=== PATIENT | female | born 1995 | race Caucasian/White ===

== ENCOUNTER → 2016-11-18 | Outpatient (CLI) | payer MEDICAID ==
[~2016-11-18] MED LIST: CIPR2.5D2; DOXY100T2 PO; ONDA8TAB9 PO; SERT50TA9
--- NOTE | 2016-11-18 16:05 | Diagnostic Imaging Report ---
INDICATION: survey. COMPARISON: None. DISCUSSION: Transabdominal sonographic evaluation of the gravid uterus was performed. Single live intrauterine at 19 weeks 2 days by sonographic measurements. EDC by today's ultrasound is 04/12/2017. presentation varied throughout the exam. Normal amniotic fluid index. Grade 1 placenta is located anteriorly with marginal placenta previa. heart rate measures 161 beats per minute. The cervix measures 4.4 cm. Biparietal diameter measures 4.1 cm. Head circumference measures 16 cm. Abdominal circumference measures 14.7 cm. Femur length measures 3 cm. There is good visualization of the kidneys, bladder, stomach, brain, four-chamber heart, three-vessel cord and insertion, spine, and extremities. IMPRESSION: 1. Single live intrauterine at 19 weeks 2 days by sonographic measurements. 2. Marginal placenta previa. 3. Normal anatomical survey. Dictated by: Dictated on workstation # [id number]
== END ==
LOC: RAD 14:17
PROVIDERS: ATTEND Obstetrics & Gynecology
DX: Z36 Encounter for antenatal screening of mother (principal); Z3A.19 19 weeks gestation of pregnancy
CPT/HCPCS: 76805; 76817

== ENCOUNTER 2022-05-19 20:06 | Emergency (ER) | payer MEDICAID ==
[~2022-05-19] VITALS: Ht 157.4 cm; Wt 44.0 kg
[~2022-05-19 20:06] MED LIST changes: -CIPR2.5D2; +CIPR2.5D3; +SERT-413; -SERT50TA9
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
[2022-05-19] MEDS ORDERED: CYCL5TAB PO (20:42)
[2022-05-19] MEDS ORDERED: CYCLOBENZAPRINE 10 MG (FLEXERIL) TAB PO SCH (20:45)
[2022-05-19] MEDS ORDERED: KETOROLAC 60 MG/2 ML VIAL IM ONE (20:45)
[2022-05-19 20:48] VITALS: BP 113/79
== END 2022-05-19 20:48 | disposition home or self-care (01) ==
LOC: EDUNIT# 20:06 → ER FS 20:08
DX: S03.41XA Sprain of jaw, right side, initial encounter (principal); M25.511 Pain in right shoulder; Z28.311 Partially vaccinated for COVID-19; Y04.8XXA Assault by other bodily force, initial encounter
CPT/HCPCS: 99284

== ENCOUNTER 2023-05-22 19:35 | Emergency (ER) | payer SELFPAY ==
[~2023-05-22] VITALS: Ht 157.4 cm; Wt 48.8 kg
[~2023-05-22 19:35] MED LIST changes: +CIPR2.5D18; -CIPR2.5D3; +CYCL5TAB PO
[2023-05-22] MEDS ORDERED: LACTATED RINGERS 1,000 ML 1,000 ML IV ONE (20:00)
[2023-05-22] MEDS ORDERED: FAMOTIDINE INJ 20MG/2ML VIAL IVP ONE (20:00)
[2023-05-22] MEDS ORDERED: PROMETHAZINE INJ 25 MG/ML VIAL IVP ONE (20:00)
[2023-05-22] MEDS ORDERED: SCOPOLAMINE 1.5 MG PATCH TD ONE (20:00)
[2023-05-22 20:11] LABS: BASOPHILS % (AUTO) 0 % (0-10); EOSINOPHILS % (AUTO) 0 % (0-10); HEMATOCRIT 40 % (35-52); HEMOGLOBIN 13.5 g/dL (11.5-16.0); LYMPHOCYTES # (AUTO) 2.1 10^3/uL (1.0-4.0); LYMPHOCYTES % (AUTO) 19 % (12-44); MEAN CORPUSCULAR HEMOGLOBIN 30 pg (25-34); MEAN CORPUSCULAR HGB CONC 34 g/dL (32-36); MEAN CORPUSCULAR VOLUME 89 fL (80-99); MEAN PLATELET VOLUME 11.6 fL (9.0-12.2); MONOCYTES # (AUTO) 0.5 10^3/uL (0.0-1.0); MONOCYTES % (AUTO) 5 % (0-12); NEUTROPHILS # (AUTO) 8.3 10^3/uL (1.8-7.8); NEUTROPHILS % (AUTO) 76 % (42-75); PLATELET COUNT 216 10^3/uL (130-400); WHITE BLOOD COUNT 10.9 10^3/uL (4.3-11.0)
[2023-05-22 20:42] LABS: POTASSIUM 3.6 MMOL/L (3.6-5.0)
[2023-05-22 20:43] LABS: ALBUMIN 4.4 GM/DL (3.2-4.5); BILIRUBIN,TOTAL 0.9 MG/DL (0.1-1.0); CALCIUM 9.6 MG/DL (8.5-10.1); CREATININE SERUM 0.64 MG/DL (0.60-1.30); TOTAL PROTEIN 7.3 GM/DL (6.4-8.2)
[2023-05-22] MEDS ORDERED: diphenhydrAMINE INJ 50 MG/ML VIAL IVP ONE (21:00)
[2023-05-22] MEDS ORDERED: FAMO-119 PO (21:11)
[2023-05-22] MEDS ORDERED: PROM12.566 RC (21:11)
--- NOTE | 2023-05-22 21:11 | ED General ---
General Chief Complaint: Abdominal/GI Problems Stated Complaint: OB, VOMITTING Nursing Triage Note: Patient is 8 weeks and 5 days . Patient began experiencing nausea and vomiting at approximately 6 weeks into her . Patient went to her doctor and they prescribed zofran. Patient reports that the zofran has provided no relief. Patient reports that she has been unable to hold anything down. Patient denies any other symptoms of illness. Source of Information: Patient Exam Limitations: No Limitations History of Present Illness Date Seen by Provider: May 22, 2023 Time Seen by Provider: 19:49 Initial Comments Caro is a 27-year-old 8 para 5 at approximately 8 weeks gestational age who presents to the emergency room with unrelenting nausea and vomiting. She reports vomiting every 30 to 60 minutes since 2100 last night. She has had daily vomiting for the last 1 to 2 weeks since about 6 weeks gestational age. She was seen at the [facility] clinic on Thursday, 5 days ago, and was prescribed Zofran. Zofran has not been effective for controlling her nausea and vomiting. She also reports some mild epigastric and left upper quadrant discomfort. She reports being exhausted from persistent nausea and vomiting and inability to rest. She reports previously living in [place] where she was able to legally smoke marijuana. Her last marijuana use was about a week ago. She reports taking 2 medications for behavioral health reasons. 1 is hydroxyzine for anxiety and the other she cannot recall. She has not been able to take these medications due to the vomiting. Allergies and Home Medications Allergies Coded Allergies: No Known Drug Allergies (Unverified , 08/21/11) Patient Home Medication List Home Medication List Reviewed: Yes Cyclobenzaprine HCl (Cyclobenzaprine HCl) 5 Mg Tablet, 5 MG PO Q6H Prescribed by: MAGGI TAYLOR MD on 05/19/222041 Famotidine (Pepcid) 20 Mg Tablet, 20 MG PO BID Prescribed by: ALMAZ ABDI on 05/22/232110 Promethazine HCl (Promethazine Suppository) 12.5 Mg Supp.rect, 12.5 MG RC Q6H PRN for NAUSEA/VOMITING-2ND LINE Prescribed by: ALMAZ ABDI on 05/22/232110 Sertraline HCl (Sertraline HCl) 50 Mg Tablet, (Reported) Entered as Reported by: KAYDEN BOOTH on 03/28/16 1322 Review of Systems Review of Systems Constitutional: no symptoms reported EENTM: no symptoms reported Respiratory: no symptoms reported Cardiovascular: no symptoms reported Gastrointestinal: see HPI : Yes Musculoskeletal: no symptoms reported Skin: no symptoms reported Psychiatric/Neurological: No Symptoms Reported Hematologic/Lymphatic: No Symptoms Reported Immunological/Allergic: no symptoms reported Past Yboesun-Bocger-Obxaid Hx Patient Social History Tobacco Use?: No Substance use?: Yes Substance type: Marijuana Alcohol Use?: No Pt feels they are or have been: No Immunizations Up To Date First/Initial COVID19 Vaccinat: 2020 estimated Past Medical History Surgeries: Yes Abdominal (Hernia) Respiratory: No Cardiac: No Neurological: No : Yes Hx : 8 Hx Para: 5 Hx Total # of Abortions (Sp): 2 Reproductive Disorders: No Sexually Transmitted Disease: Yes (TRICHOMONIASIS) Genitourinary: No Gastrointestinal: No Musculoskeletal: No Endocrine: No HEENT: No Cancer: No Psychosocial: Yes Anxiety, Depression Integumentary: No Family Medical History No Pertinent Family Hx Physical Exam Vital Signs Vital Signs - First Documented 05/22/23 19:50 Temp 37.0 Pulse 76 Resp 18 B/P (MAP) 131/99 (110) Pulse Ox 100 O2 Delivery Room Air Capillary Refill : Less Than 3 Seconds Height, Weight, BMI Height: 5'1" Weight: 103lbs. oz. [id number]; 19.00 BMI Method:Stated General Appearance: WD/WN, Anxious, Mild Distress HEENT: PERRL/EOMI, Normal ENT Inspection, Other (Oropharynx dry) Neck: Normal Inspection Respiratory: Lungs Clear, Normal Breath Sounds, No Accessory Muscle Use Cardiovascular: Regular Rate, Rhythm, No Edema, No Murmur Gastrointestinal: Normal Bowel Sounds, Soft; No Distended; Tenderness (Mild in the epigastrium and left upper quadrant) Extremity: Normal Inspection Neurologic/Psychiatric: Alert, Oriented x3, No Motor/Sensory Deficits Skin: Normal Color, Warm/Dry Progress/Results/Core Measures Suspected Sepsis SIRS Temperature: Pulse: 76 Respiratory Rate: 18 Laboratory Tests 05/22/23 19:56: White Blood Count 10.9 Blood Pressure 131 /99 Mean: 110 Laboratory Tests 05/22/23 19:56: Creatinine 0.64, Platelet Count 216, Total Bilirubin 0.9 Results/Orders Lab Results Laboratory Tests Test 05/22/23 19:56 Range/Units White Blood Count 10.9 4.3-11.0 10^3/uL Red Blood Count 4.48 3.80-5.11 10^6/uL Hemoglobin 13.5 11.5-16.0 g/dL Hematocrit 40 35-52 % Mean Corpuscular Volume 89 80-99 fL Mean Corpuscular Hemoglobin 30 25-34 pg Mean Corpuscular Hemoglobin Concent 34 32-36 g/dL Red Cell Distribution Width 13.1 10.0-14.5 % Platelet Count 216 130-400 10^3/uL Mean Platelet Volume 11.6 9.0-12.2 fL Immature Granulocyte % (Auto) 0 % Neutrophils (%) (Auto) 76 H 42-75 % Lymphocytes (%) (Auto) 19 12-44 % Monocytes (%) (Auto) 5 0-12 % Eosinophils (%) (Auto) 0 0-10 % Basophils (%) (Auto) 0 0-10 % Neutrophils # (Auto) 8.3 H 1.8-7.8 10^3/uL Lymphocytes # (Auto) 2.1 1.0-4.0 10^3/uL Monocytes # (Auto) 0.5 0.0-1.0 10^3/uL Eosinophils # (Auto) 0.0 0.0-0.3 10^3/uL Basophils # (Auto) 0.0 0.0-0.1 10^3/uL Immature Granulocyte # (Auto) 0.0 0.0-0.1 10^3/uL Sodium Level 137 135-145 MMOL/L Potassium Level 3.6 3.6-5.0 MMOL/L Chloride Level 103 98-107 MMOL/L Carbon Dioxide Level 23 21-32 MMOL/L Anion Gap 11 5-14 MMOL/L Blood Urea Nitrogen 8 7-18 MG/DL Creatinine 0.64 0.60-1.30 MG/DL Estimat Glomerular Filtration Rate 123 BUN/Creatinine Ratio 13 Glucose Level 94 70-105 MG/DL Calcium Level 9.6 8.5-10.1 MG/DL Corrected Calcium 9.3 8.5-10.1 MG/DL Magnesium Level 2.0 1.6-2.4 MG/DL Total Bilirubin 0.9 0.1-1.0 MG/DL Aspartate Amino Transf (AST/SGOT) 23 5-34 U/L Alanine Aminotransferase (ALT/SGPT) 16 0-55 U/L Alkaline Phosphatase 47 40-136 U/L Total Protein 7.3 6.4-8.2 GM/DL Albumin 4.4 3.2-4.5 GM/DL Lipase 36 8-78 U/L Serum Test, Qualitative POSITIVE NEGATIVE My Orders Orders - ALMAZ NAIR MD Cbc And Automated Diff (05/22/23 19:55) Comprehensive Metabolic Panel (05/22/23 19:55) Hcg,Qualitative Serum (05/22/23 19:55) Lipase (05/22/23 19:55) Magnesium (05/22/23 19:55) Ed Iv/Invasive Line Start (05/22/23 19:55) Lactated Ringers 1,000 Ml (Lactated Ring (05/22/23 20:00) Promethazine Injection (Promethazine I (05/22/23 20:00) Famotidine Injection (Famotidine Injec (05/22/23 20:00) Scopolamine Patch (Scopolamine Patch) (05/22/23 20:00) Diphenhydramine Injection (Diphenhydram (05/22/23 21:00) Medications Given in ED Current Medications Medications Dose Ordered Sig/Bebo Route Start Time Stop Time Status Last Admin Dose Admin Diphenhydramine HCl 12.5 mg ONCE ONCE IVP 05/22/23 21:00 05/22/23 21:01 DC 05/22/23 21:02 12.5 MG Famotidine 20 mg ONCE ONCE IVP 05/22/23 20:00 05/22/23 20:01 DC 05/22/23 20:11 20 MG Lactated Ringer's 1,000 ml @ 0 mls/hr Q0M ONCE IV 05/22/23 20:00 05/22/23 20:01 DC 05/22/23 20:14 999 MLS/HR Promethazine HCl 25 mg ONCE ONCE IVP 05/22/23 20:00 05/22/23 20:01 DC 05/22/23 20:06 25 MG Scopolamine 1.5 mg ONCE ONCE TD 05/22/23 20:00 05/22/23 20:01 DC 05/22/23 20:05 1.5 MG Vital Signs/I&O 05/22/23 05/22/23 19:50 21:14 Temp 37.0 Pulse 76 68 Resp 18 16 B/P (MAP) 131/99 (110) 128/82 Pulse Ox 100 100 O2 Delivery Room Air Room Air Capillary Refill : Less Than 3 Seconds Blood Pressure Mean: 110 Progress Note : Time: 22:48 Progress Note Patient was treated with a liter of IV LR and Phenergan. She experienced some mild sensations of twitching and agitation which was further treated with Benadryl 12.5 mg IV. Labs were obtained, reviewed, and interpreted by me in their entirety. CBC and CMP were unremarkable. There was no evidence of dehydration or electrolyte abnormalities. Patient did not produce a urine specimen while in the ER. Lipase was normal and serum test was positive. Patient was also provided with a scopolamine patch. See discharge instructions for further discussion. Departure Impression Primary Impression: Nausea/vomiting in Additional Impression: Upper abdominal pain Disposition: HOME, SELF-CARE Condition: Improved Departure-Patient Inst. Decision time for Depature: 21:06 Referrals: SELFJOVANY MD (PCP/Family) Primary Care Physician Patient Instructions: Nausea and Vomiting of Add. Discharge Instructions: Start with noncarbonated clear liquids and gradually advance your diet with small quantities of bland food as tolerated. Eat small quantities of food throughout the day but avoid large meals. This should help prevent nausea. You may use Zofran as prescribed by your primary physician. If this is not effective, you may use Phenergan (promethazine) as prescribed. If you have any agitation or twitching associated with Phenergan, you may counter that with Benadryl (diphenhydramine) 25 mg every 4 hours as needed. Both Phenergan and Benadryl may cause significant drowsiness. Do not attempt to drive, operate machinery, or make important decisions while taking these medications. Please call your primary provider as soon as possible for follow-up and further evaluation. Take Pepcid as antacid medication to reduce stomach irritation until otherwise directed. You may leave the scopolamine patch in place for up to 3 days. If it causes blurry vision or dry mouth that is intolerable, simply remove the patch. Side effects should resolve within hours. Return to the emergency room if you have worsening symptoms despite following these instructions. Avoid use of any tobacco, alcohol, marijuana, or other illicit substances, especially while . All discharge instructions reviewed with patient and/or family. Voiced understanding. Scripts Famotidine (Pepcid) 20 Mg Tablet 20 MG PO BID, #60 TAB Prov: ALMAZ NAIR MD 05/22/23 Promethazine HCl (Promethazine Suppository) 12.5 Mg Supp.rect 12.5 MG RC Q6H PRN for NAUSEA/VOMITING-2ND LINE, #20 SUPP.RECT Prov: ALMAZ NAIR MD 05/22/23 Copy Copies To 1: [facility] [place] ALMAZ NAIR MD May 22, 2023 21:11
[2023-05-22 21:14] VITALS: BP 128/82
== END 2023-05-22 21:15 | disposition home or self-care (01) ==
LOC: EDUNIT# 19:35 → ER FS 19:35
DX: O21.9 Vomiting of pregnancy, unspecified (principal); O26.891 Other specified pregnancy related conditions, first trimester; R10.12 Left upper quadrant pain; R45.1 Restlessness and agitation; R25.3 Fasciculation; Z3A.08 8 weeks gestation of pregnancy; Z28.311 Partially vaccinated for COVID-19
CPT/HCPCS: 36415; 80053; 83690; 83735; 84703; 85025